=== PATIENT | female | born 1970 | race Caucasian/White ===

== ENCOUNTER 2019-02-14 05:49 | Day surgery (SDC) | payer BC, OTHER ==
[2019-02-14] MEDS ORDERED: ONDANSETRON 4 MG INJ IV (07:30)
[2019-02-14] MEDS ORDERED: FENTAnyl 50 MCG/ML VIAL IV (07:30)
[2019-02-14] MEDS ORDERED: PROCHLORPERAZINE 10 MG INJ IV (07:30)
[2019-02-14] MEDS ORDERED: DIPHENHYDRAMINE 50 MG INJ IV (07:30)
[2019-02-14] MEDS ORDERED: MEPERIDINE 25 MG INJ IV (07:30)
[2019-02-14] MEDS ORDERED: HYDROmorphONE 1 MG/5 ML IV SYRINGE IV ×3 (07:30)
[2019-02-14] MEDS ORDERED: OXYCODONE/ACETAMINOPHEN (5/325) TAB PO (07:30)
[2019-02-14] MEDS: LACTATED RINGER'S 1,000 ML IV (07:30)
[2019-02-14] MEDS: TETRACAINE 0.5% 4 ML OPH (07:35)
[2019-02-14] MEDS ORDERED: FENTAnyl 50 MCG/ML VIAL (07:37)
[2019-02-14] MEDS ORDERED: MIDAZOLAM 1 MG/ML 2 ML INJ (07:37)
[2019-02-14] MEDS ORDERED: PROPOFOL 20 ML (07:47)
[2019-02-14] MEDS: BUPIVACAINE 0.5% (SDV) 30 ML INJ (07:55)
[2019-02-14] MEDS: LIDOCAINE 2% (MDV) 20 ML INJ (07:55)
[2019-02-14] MEDS: LIDOCAINE 1%/EPI (1:100,000) (MDV) 20 ML (08:02)
[2019-02-14] MEDS: TOBRAMYCIN 0.3% 3.5 GM OPH OINT (08:11)
[2019-02-14] MEDS ORDERED: HYDROmorphONE 2 MG/ML SYG (08:29)
[2019-02-14] MEDS ORDERED: BALANCED SALT SOLN 15 ML OPH IRRIG (09:00)
[2019-02-14] MEDS: ACETAZOLAMIDE 250 MG TAB PO (09:59)
== END 2019-02-14 11:05 | disposition home or self-care (01) ==
LOC: SDS 05:49
DX: H11.001 Unspecified pterygium of right eye (principal)
CPT/HCPCS: 65426